=== PATIENT | male | born 1965 | race Caucasian/White ===

== ENCOUNTER 2017-07-31 10:29 | Emergency (ER) | payer OTHER ==
[~2017-07-31] VITALS: Ht 180.3 cm; Wt 86.2 kg
[2017-07-31 10:30] VITALS: BP_SYST 141
[2017-07-31] MEDS: KETOROLAC TROMETHAMINE 60 MG/2 ML VIAL IM ONE (13:52)
[2017-07-31 14:45] VITALS: BP_SYST 128
== END 2017-07-31 14:45 | disposition home or self-care (01) ==
LOC: SED 10:29
DX: S16.1XXA Strain of muscle, fascia and tendon at neck level, initial encounter (principal); S46.911A Strain of unspecified muscle, fascia and tendon at shoulder and upper arm level, right arm, initial encounter; S63.502A Unspecified sprain of left wrist, initial encounter; R03.0 Elevated blood-pressure reading, without diagnosis of hypertension; V89.2XXA Person injured in unspecified motor-vehicle accident, traffic, initial encounter; Y93.89 Activity, other specified; Y92.410 Unspecified street and highway as the place of occurrence of the external cause; Y99.8 Other external cause status
CPT/HCPCS: 29125; 73030; 73110; 96372; 99284; J1885